=== PATIENT | female | born 1985 | race Hispanic/Latino ===

== ENCOUNTER 2023-10-08 05:25 | Emergency (ER) | payer SELFPAY ==
[2023-10-08] MEDS ORDERED: Bacitracin 1 PK ONE (05:54)
[2023-10-08] MEDS ORDERED: Acetaminophen 500 MG TAB ONE (06:05)
[2023-10-08] MEDS ORDERED: Ondansetron ODT 4 MG TAB ONE (06:40)
[2023-10-08] MEDS ORDERED: Boostrix 0.5 ML (Tdap) VIAL (>/=7 yrs of age) ONE (06:40)
[2023-10-08] MEDS ORDERED: Morphine 4 MG/ML VIAL ONE (07:35)
[2023-10-08] MEDS ORDERED: Ketorolac Tromethamine 30 MG (1 mL) VIAL ONE (07:36)
[2023-10-08] MEDS ORDERED: CEFAZOLIN 1 GM VIAL ONE (07:36)
[2023-10-08] MEDS ORDERED: Lidocaine 1% PF 5 ML VIAL ONE (08:18)
== END 2023-10-08 10:01 | disposition home or self-care (01) ==
LOC: ERS 05:25
DX: S61.011A Laceration without foreign body of right thumb without damage to nail, initial encounter (principal); W25.XXXA Contact with sharp glass, initial encounter; Z23 Encounter for immunization
CPT/HCPCS: 12001; 29125; 90471; 90715; 96374; 96375; J0690; J1885; J2270; Q0162